=== PATIENT | female | born 1990 | race African-American/Black ===

== ENCOUNTER 2021-04-02 00:53 | Inpatient (IN) | payer MEDICAID ==
[2021-04-02] VITALS (32 sets, daily range): BP systolic 87–145; BP diastolic 51–90
[~2021-04-02] VITALS: Ht 165.1 cm; Wt 93.4 kg
[2021-04-02] MEDS ORDERED: SODIUM CHLORIDE 0.9% 1,000 ML IV ONE ×4 (01:30→03:45)
[2021-04-02] MEDS ORDERED: ONDANSETRON HCL 4MG/2ML INJ IV ONE ×2 (01:30→04:00)
[2021-04-02 02:09] LABS: BASOPHILS % 0.3 % (0.0-2.0); EOSINOPHILS % 0.3 % (0.0-5.0); HEMOGLOBIN. 12.1 g/dL (12.0-16.0); LYMPHOCYTES % 45.5 % (20.0-50.0); MEAN CORPUSCULAR HEMOGLOBIN 30.1 pg (28.0-32.0); MEAN CORPUSCULAR VOLUME 87.3 fL (81.0-99.0); MONOCYTES % 4.7 % (2.0-8.0); NEUTROPHILS % 49.2 % (40.0-76.0); RED BLOOD CELL COUNT 4.01 mill/uL (4.2-5.4); RED CELL DISTRIBUTION WIDTH 13.4 % (11.6-14.6)
[2021-04-02 02:12] LABS: CHLORIDE 106 mEq/L (98-107)
[2021-04-02] MEDS ORDERED: KCL 20MEQ/100ML PREMIX 100 ML IV NR (02:30)
[2021-04-02 02:36] LABS: B-HCG QUANTITATIVE 14287 mIU/mL (<3)
[2021-04-02 03:00] LABS: CLARITY URINE CLOUDY (CLEAR); COLOR URINE DARK YELLOW (YELLOW); KETONES URINE 1+ (NEGATIVE); LEUKOCYTE ESTERASE URINE 1+ (NEGATIVE); NITRITE URINE NEGATIVE (NEGATIVE); OCCULT BLOOD URINE NEGATIVE (NEGATIVE); PH URINE 6.5 (4.5-8.0); PROTEIN URINE 3+ (NEGATIVE); SPECIFIC GRAVITY URINE 1.025 (1.005-1.030)
[2021-04-02 03:22] LABS: *AMPHETAMINES SCREEN URINE NEGATIVE (NEGATIVE); *BARBITURATES SCREEN URINE NEGATIVE (NEGATIVE); *COCAINE SCREEN URINE NEGATIVE (NEGATIVE)
[2021-04-02 03:23] LABS: METHADONE URINE SCREEN NEGATIVE (NEGATIVE); OPIATES URINE SCREEN NEGATIVE (NEGATIVE); PHENCYCLIDINE URINE SCREEN NEGATIVE (NEGATIVE)
[2021-04-02 03:25] LABS: *BENZODIAZEPINES SCREEN URINE PRESUMTIVE POSITIVE (NEGATIVE); CANNABINOID URINE SCREEN PRESUMTIVE POSITIVE (NEGATIVE)
[2021-04-02] MEDS ORDERED: MORPHINE SULFATE 4 MG/ML CPJ (NOT FOR IM USE) IV ONE (04:00)
[2021-04-02 04:11] LABS: HEMATOCRIT 28.6 % (36.0-48.0); HEMOGLOBIN 8.8 g/dL (12.0-16.0); MEAN CORPUSCULAR HEMOGLOBIN 29.5 pg (28.0-32.0); MEAN CORPUSCULAR VOLUME 96.1 fL (81.0-99.0); PLATELET 96 x1000/uL (130-400); RED BLOOD CELL COUNT 2.97 mill/uL (4.2-5.4); RED CELL DISTRIBUTION WIDTH 14.6 % (11.6-14.6)
[2021-04-02] MEDS ORDERED: OXYTOCIN 10 UNITS/ML 1ML ONE (04:27)
[2021-04-02] MEDS ORDERED: ROCURONIUM BROMIDE 10MG/ML VIAL 5ML IV ONE (04:47)
[2021-04-02] MEDS ORDERED: HYDROMORPHONE HCL/PF 2MG/ML (OR) ONE (04:47)
[2021-04-02] MEDS ORDERED: ETOMIDATE 2MG/ML 10ML VIAL IV ONE (04:48)
[2021-04-02] MEDS ORDERED: SODIUM CHLORIDE 0.9% 10ML VIAL ONE (04:54)
[2021-04-02] MEDS ORDERED: CEFAZOLIN SODIUM 1000MG/VIAL ONE (04:54)
[2021-04-02] MEDS ORDERED: DEXAMETHASONE 4MG/ML 1ML VIAL ONE (05:54)
[2021-04-02] MEDS ORDERED: NEOSTIGMINE METHYLSULFATE 1MG/ML 10 ML VIAL ONE (05:57)
[2021-04-02] MEDS ORDERED: GLYCOPYRROLATE 0.2 MG/ML 2ML VIAL ONE (05:57)
[2021-04-02] MEDS ORDERED: ONDANSETRON HCL 4MG/2ML INJ IV PRN (06:15)
[2021-04-02] MEDS ORDERED: CALCIUM CHLORIDE 1GM/10ML SYR IV ONE ×2 (06:21→07:00)
[2021-04-02] MEDS ORDERED: LIDOCAINE HCL 1% 20ML VIAL (Pyxis) INJ ONE (06:50)
[2021-04-02] MEDS ORDERED: ACETAMINOPHEN 650MG SUPP PR PRN (07:00)
[2021-04-02] MEDS ORDERED: METOPROLOL TARTRATE 5MG/5ML VIAL IV ONE (07:00)
[2021-04-02] MEDS ORDERED: DEXT 5%/0.45% NACL KCL 20MEQ/L 1,000 ML IV SCH (07:00)
[2021-04-02] MEDS ORDERED: VERAPAMIL HCL 2.5 MG/1 ML 2ML VIAL IV ONE (07:00)
[2021-04-02] MEDS: METRONIDAZOLE 500 MG PREMIX 100 ML IV SCH ×3 (09:11→23:07)
[2021-04-02 09:45] LABS: HEMATOCRIT. 36.5 % (36.0-48.0); HEMOGLOBIN. 12.6 g/dL (12.0-16.0); MEAN CORPUSCULAR HEMOGLOBIN 29.6 pg (28.0-32.0); MEAN CORPUSCULAR VOLUME 86.1 fL (81.0-99.0); MEAN PLATELET VOLUME 9.9 fl (7.4-10.4); PLATELET 102 x1000/uL (130-400); RED BLOOD CELL COUNT 4.24 mill/uL (4.2-5.4); RED CELL DISTRIBUTION WIDTH 13.9 % (11.6-14.6)
[2021-04-02] MEDS: FAMOTIDINE 20MG/2ML VIAL IV SCH ×2 (09:47→20:19)
[2021-04-02 10:04] LABS: CHLORIDE 114 mEq/L (98-107)
[2021-04-02 10:10] LABS: PHOSPHORUS 4.4 mg/dL (2.5-4.9)
[2021-04-02] MEDS ORDERED: MAGNESIUM 2 G PREMIX 50 ML IV ONE (11:30)
[2021-04-02] MEDS: SODIUM CHLORIDE 0.9% 1,000 ML IV SCH ×2 (11:43→21:02)
[2021-04-02] MEDS: HYDROMORPHONE HCL/PF 2MG/ML CPJ IV PRN ×3 (12:12→22:09)
[2021-04-02] MEDS ORDERED: GABA-529 MT (12:42)
[2021-04-02 13:29] LABS: PLATELET ESTIMATE DECREASED
[2021-04-02] MEDS ORDERED: MAGNESIUM 1 G PREMIX 100 ML IV ONE (13:30)
[2021-04-02] MEDS ORDERED: IBUPROFEN 400MG TABLET PO PRN (16:15)
[2021-04-02] MEDS: IBUPROFEN 400MG TABLET PO PRN (16:39)
[2021-04-02] MEDS: ONDANSETRON HCL 4MG/2ML INJ IV PRN (17:50)
[2021-04-02] MEDS: ACETAMINOPHEN WITH CODEINE 300/30MG TABLET PO PRN ×2 (17:55→21:02)
[2021-04-02] MEDS: METOPROLOL TARTRATE 25MG TABLET PO SCH (20:19)
[2021-04-03] VITALS (46 sets, daily range): BP systolic 86–127; BP diastolic 39–72
[2021-04-03] MEDS: ACETAMINOPHEN WITH CODEINE 300/30MG TABLET PO PRN (03:12)
[2021-04-03] MEDS: IBUPROFEN 400MG TABLET PO PRN (05:34)
[2021-04-03 05:56] LABS: CHLORIDE 109 mEq/L (98-107)
[2021-04-03 06:02] LABS: BASOPHILS % 0.1 % (0.0-2.0); EOSINOPHILS % 0.1 % (0.0-5.0); HEMATOCRIT. 26.8 % (36.0-48.0); HEMOGLOBIN. 9.3 g/dL (12.0-16.0); LYMPHOCYTES % 13.9 % (20.0-50.0); MEAN PLATELET VOLUME 10.6 fl (7.4-10.4); MONOCYTES % 6.7 % (2.0-8.0); NEUTROPHILS % 79.2 % (40.0-76.0); PLATELET 85 x1000/uL (130-400); RED BLOOD CELL COUNT 3.11 mill/uL (4.2-5.4); RED CELL DISTRIBUTION WIDTH 13.7 % (11.6-14.6)
[2021-04-03] MEDS: SODIUM CHLORIDE 0.9% 1,000 ML IV SCH (07:24)
[2021-04-03] MEDS ORDERED: KETOROLAC 30MG/ML VIAL IM SCH (08:00)
[2021-04-03] MEDS ORDERED: IBUPROFEN 400MG TABLET PO PRN ×2 (08:00)
[2021-04-03] MEDS: FAMOTIDINE 20MG/2ML VIAL IV SCH ×2 (08:04→20:48)
[2021-04-03] MEDS: METOPROLOL TARTRATE 25MG TABLET PO SCH ×2 (09:00→20:42)
[2021-04-03] MEDS: HYDROCODONE/APAP 7.5/325MG 1 TAB TABLET PO PRN ×4 (09:02→23:15)
[2021-04-03 16:49] LABS: HEMATOCRIT 26.3 % (36.0-48.0); HEMOGLOBIN 9.4 g/dL (12.0-16.0)
[2021-04-03] MEDS ORDERED: CALCIUM GLUCONATE 1GM PREMIX 50 ML IV NR (19:30)
[2021-04-03] MEDS: IBUPROFEN 800MG TABLET PO PRN (19:40)
[2021-04-04] VITALS (25 sets, daily range): BP systolic 91–130; BP diastolic 41–75
[2021-04-04] MEDS: IBUPROFEN 800MG TABLET PO PRN (04:30)
[2021-04-04 06:00] LABS: CHLORIDE 110 mEq/L (98-107)
[2021-04-04 06:01] LABS: BASOPHILS % 1.2 % (0.0-2.0); EOSINOPHILS % 0.2 % (0.0-5.0); HEMOGLOBIN. 7.9 g/dL (12.0-16.0); LYMPHOCYTES % 28.9 % (20.0-50.0); MEAN CORPUSCULAR HEMOGLOBIN 29.8 pg (28.0-32.0); MEAN CORPUSCULAR VOLUME 86.6 fL (81.0-99.0); MEAN PLATELET VOLUME 10.6 fl (7.4-10.4); MONOCYTES % 6.3 % (2.0-8.0); NEUTROPHILS % 63.4 % (40.0-76.0); PLATELET 81 x1000/uL (130-400); RED BLOOD CELL COUNT 2.65 mill/uL (4.2-5.4); RED CELL DISTRIBUTION WIDTH 13.5 % (11.6-14.6)
[2021-04-04] MEDS: ONDANSETRON HCL 4MG/2ML INJ IV PRN (08:27)
[2021-04-04] MEDS: FAMOTIDINE 20MG/2ML VIAL IV SCH ×2 (08:27→21:44)
[2021-04-04] MEDS: HYDROCODONE/APAP 7.5/325MG 1 TAB TABLET PO PRN ×4 (08:28→20:26)
[2021-04-04] MEDS: METOPROLOL TARTRATE 25MG TABLET PO SCH ×2 (08:28→21:44)
[2021-04-05] VITALS: BP 91/56
[2021-04-05] MEDS: IBUPROFEN 800MG TABLET PO PRN (01:03)
[2021-04-05 04:00] VITALS: BP 101/51
[2021-04-05] MEDS: HYDROCODONE/APAP 7.5/325MG 1 TAB TABLET PO PRN (04:40)
[2021-04-05] MEDS ORDERED: POTASSIUM CHLORIDE 20MEQ TABLET SR PO SCH (07:00)
[2021-04-05 08:00] VITALS: BP 106/62
[2021-04-05] MEDS: METOPROLOL TARTRATE 25MG TABLET PO SCH (09:00)
[2021-04-05] MEDS: FAMOTIDINE 20MG/2ML VIAL IV SCH (09:16)
[2021-04-05 10:03] VITALS: BP 106/62
== END 2021-04-05 11:00 | disposition home or self-care (01) | DRG 545 ==
LOC: ER 00:53 → CVICU 02:40 → ER 05:05 → SUPCPDRO 06:57 → ENRESERV 08:24 → 6EST 04-04 12:38
PROVIDERS: ADMIT Specialist; ATTEND Specialist
PROC: 0UB10ZZ Excision of Left Ovary, Open Approach (ICD-10-PCS; principal; 2021-04-02)
PROC: 0UT60ZZ Resection of Left Fallopian Tube, Open Approach (ICD-10-PCS; 2021-04-02)
PROC: 30233K1 Transfusion of Nonautologous Frozen Plasma into Peripheral Vein, Percutaneous Approach (ICD-10-PCS; 2021-04-02)
PROC: 30233N1 Transfusion of Nonautologous Red Blood Cells into Peripheral Vein, Percutaneous Approach (ICD-10-PCS; 2021-04-02)
DX: O00.102 Left tubal pregnancy without intrauterine pregnancy (principal); D69.6 Thrombocytopenia, unspecified; D62 Acute posthemorrhagic anemia; G62.9 Polyneuropathy, unspecified; E83.42 Hypomagnesemia; O08.5 Metabolic disorders following an ectopic and molar pregnancy; F12.10 Cannabis abuse, uncomplicated; N83.202 Unspecified ovarian cyst, left side; D72.829 Elevated white blood cell count, unspecified; I49.3 Ventricular premature depolarization; O26.891 Other specified pregnancy related conditions, first trimester; F17.200 Nicotine dependence, unspecified, uncomplicated; Z20.822 Contact with and (suspected) exposure to COVID-19; O99.331 Smoking (tobacco) complicating pregnancy, first trimester; O99.321 Drug use complicating pregnancy, first trimester; O99.351 Diseases of the nervous system complicating pregnancy, first trimester; O34.81 Maternal care for other abnormalities of pelvic organs, first trimester; O99.111 Other diseases of the blood and blood-forming organs and certain disorders involving the immune mechanism complicating pregnancy, first trimester; O08.89 Other complications following an ectopic and molar pregnancy; Z82.49 Family history of ischemic heart disease and other diseases of the circulatory system; Z79.899 Other long term (current) drug therapy
CPT/HCPCS: 36415; 76856; 80048; 80053; 80305; 81003; 83735; 84100; 84132; 84702; 85014; 85018; 85025; 85027; 86850; 86900; 86920; 86927; 87426; 88302; 88304; 93005; 93970; 99291; J0610; J0690; J1100; J1170; J1885; J2270; J2405; J2710; J3475; J3480; J3490; J7030; J7040; P9016; P9017

== ENCOUNTER 2021-04-11 21:08 | Emergency (ER) | payer MEDICAID ==
[~2021-04-11] VITALS: Ht 162.6 cm; Wt 77.0 kg
[~2021-04-11 21:08] MED LIST: GABA-529 MT
[2021-04-11] MEDS ORDERED: SODIUM CHLORIDE 0.9% 1,000 ML IV ONE (21:45)
[2021-04-11] MEDS ORDERED: MORPHINE SULFATE 4 MG/ML CPJ (NOT FOR IM USE) IV ONE (22:00)
[2021-04-11] MEDS ORDERED: ONDANSETRON HCL 4MG/2ML INJ IV ONE (22:00)
[2021-04-11 22:14] LABS: BASOPHILS % 1.2 % (0.0-2.0); HEMATOCRIT. 24.6 % (36.0-48.0); HEMOGLOBIN. 8.8 g/dL (12.0-16.0); LYMPHOCYTES % 22.4 % (20.0-50.0); MEAN CORPUSCULAR HEMOGLOBIN 31.3 pg (28.0-32.0); MEAN CORPUSCULAR VOLUME 87.7 fL (81.0-99.0); MEAN PLATELET VOLUME 8.2 fl (7.4-10.4); MONOCYTES % 5.3 % (2.0-8.0); NEUTROPHILS % 70.1 % (40.0-76.0); PLATELET 304 x1000/uL (130-400); RED CELL DISTRIBUTION WIDTH 14.4 % (11.6-14.6)
[2021-04-11 22:21] LABS: CHLORIDE 107 mEq/L (98-107)
[2021-04-11 22:32] LABS: B-HCG QUANTITATIVE 74 mIU/mL (<3)
[2021-04-12] MEDS ORDERED: KCL 10MEQ/50ML PREMIX 100 ML IV SCH (00:15)
[2021-04-12 00:51] LABS: CLARITY URINE CLEAR (CLEAR); COLOR URINE YELLOW (YELLOW); KETONES URINE NEGATIVE (NEGATIVE); LEUKOCYTE ESTERASE URINE NEGATIVE (NEGATIVE); NITRITE URINE NEGATIVE (NEGATIVE); OCCULT BLOOD URINE NEGATIVE (NEGATIVE); PROTEIN URINE NEGATIVE (NEGATIVE); SPECIFIC GRAVITY URINE 1.008 (1.005-1.030); UROBILINOGEN URINE 0.2 E.U./dL (0.2-1.0)
[2021-04-12 02:23] VITALS: BP 105/51
== END 2021-04-12 02:34 | disposition short-term general hospital (02) ==
LOC: ER 21:14
DX: R10.2 Pelvic and perineal pain (principal); R11.2 Nausea with vomiting, unspecified; D64.9 Anemia, unspecified
CPT/HCPCS: 36415; 76830; 76856; 80053; 81003; 84702; 85025; 86850; 86900; 86901; 93005; 96361; 96365; 96374; 96375; 99285; J2270; J2405; J3480; J7030; Z7610

== ENCOUNTER 2021-07-24 11:15 | Emergency (ER) | payer MEDICAID ==
[~2021-07-24] VITALS: Ht 165.1 cm; Wt 82.0 kg
[2021-07-24] MEDS ORDERED: IBUPROFEN 800MG TABLET PO ONE (13:15)
[2021-07-24 14:41] VITALS: BP 106/78
== END 2021-07-24 14:48 | disposition home or self-care (01) ==
LOC: ER 11:15
DX: S60.211A Contusion of right wrist, initial encounter (principal); Z98.890 Other specified postprocedural states; X58.XXXA Exposure to other specified factors, initial encounter; Y93.89 Activity, other specified; Y92.89 Other specified places as the place of occurrence of the external cause; Y99.8 Other external cause status
CPT/HCPCS: 73110; 73130; 99284

== ENCOUNTER 2021-10-28 16:28 | Emergency (ER) | payer MEDICAID ==
[~2021-10-28] VITALS: Ht 165.1 cm; Wt 84.0 kg
[2021-10-28 17:50] VITALS: BP 122/85
[2021-10-28] MEDS: IBUPROFEN 600MG TABLET PO STA (17:50)
[2021-10-28] MEDS ORDERED: NAPR-681 PO (18:09)
== END 2021-10-28 19:00 | disposition home or self-care (01) ==
LOC: ER 16:28
DX: S63.681A Other sprain of right thumb, initial encounter (principal); S60.042A Contusion of left ring finger without damage to nail, initial encounter; M25.531 Pain in right wrist; X58.XXXA Exposure to other specified factors, initial encounter; Y93.89 Activity, other specified; Y92.89 Other specified places as the place of occurrence of the external cause; Y99.8 Other external cause status
CPT/HCPCS: 73110; 73140; 81025; 99284